=== PATIENT | male | born 1995 | race Caucasian/White ===

== ENCOUNTER 2020-04-21 21:00 | Emergency (ER) | payer OTHER, SELFPAY ==
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
[2020-04-21 21:02] VITALS: BP 123/61; PULSE 80; RESP 17; TEMP 37.1; O2SAT 100
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
[2020-04-21] MEDS: TETANUS,DIPHTHERIA,AC PERTUSSIS ADULT (0.5 ML) BOOSTRIX IM (23:22)
[2020-04-21 23:46] VITALS: BP 121/62; PULSE 72; RESP 16; O2SAT 99
== END 2020-04-21 23:52 | disposition home or self-care (01) ==
PROVIDERS: Emergency Provider Emergency Medicine; PCP Pediatrics
DX: S01.81XA Laceration without foreign body of other part of head, initial encounter (principal); S01.121A Laceration with foreign body of right eyelid and periocular area, initial encounter; S01.82XA Laceration with foreign body of other part of head, initial encounter; S01.411A Laceration without foreign body of right cheek and temporomandibular area, initial encounter; Z23 Encounter for immunization; Z87.891 Personal history of nicotine dependence; W22.8XXA Striking against or struck by other objects, initial encounter
CPT/HCPCS: 12013; 70450; 90471; 90715; 99284